=== PATIENT | female | born 1945 | race Caucasian/White ===

== ENCOUNTER → 2018-02-21 12:20 | Outpatient (CLI) | payer MEDICARE ==
[~2018-02-21] VITALS: Ht 160 cm; Wt 63.6 kg
[~2018-02-21 12:20] MED LIST: ACTIGALL 300 M300 MG PO; DYAZIDE 37.5/251 CAP PO; K-TAB10 MEQ PO; LEVOTHYROXINE50 MCG PO; LISINOPRIL10 MG PO; OMEPRAZOLE40 MG PO; PEPCID40 MG PO
[2018-02-21 12:58] VITALS: BP 120/65; Ht 160 cm; Wt 63.6 kg
== END | disposition home or self-care (01) ==
LOC: D.OPS 02-05 11:00
DX: M81.0 Age-related osteoporosis without current pathological fracture (principal); Z01.812 Encounter for preprocedural laboratory examination

== ENCOUNTER 2018-08-28 10:33 | Outpatient (CLI) | payer MEDICARE ==
[~2018-08-28] VITALS: Ht 160 cm; Wt 61.4 kg
[2018-08-28 11:22] VITALS: BP 124/65; Ht 160 cm; Wt 61.4 kg
--- NOTE | 2018-08-28 11:33 | NUR ---
1125 PT DENIES ANY PROBLEMS FROM INJECTION. NO C/O ITCHING. NO RASHES NOTED.
== END 2018-08-28 11:29 | disposition home or self-care (01) ==
LOC: D.OPS 10:33
PROVIDERS: ATTEND Family Medicine
DX: M81.0 Age-related osteoporosis without current pathological fracture (principal)

== ENCOUNTER 2019-03-04 12:26 | Outpatient (CLI) | payer MEDICARE ==
[~2019-03-04] VITALS: Ht 160 cm; Wt 63.6 kg
[2019-03-04 12:53] VITALS: Ht 160 cm; Wt 63.6 kg
== END 2019-03-04 13:06 | disposition home or self-care (01) ==
LOC: D.OPS 12:26
PROVIDERS: ATTEND Family Medicine
DX: M81.0 Age-related osteoporosis without current pathological fracture (principal)